=== PATIENT | female | born 1945 | race Caucasian/White ===

== ENCOUNTER → 2016-06-09 | Day surgery (SDC) | payer OTHER ==
[~2016-06-09] VITALS: Ht 154.9 cm; Wt 80.3 kg
[2016-06-09 09:30] VITALS: BP 149/89
[2016-06-09 15:12] VITALS: BP 116/64
== END | disposition home or self-care (01) ==
LOC: GI 08:58 → OR 10:30 → GI 11:30
PROVIDERS: Internal Medicine Gastroenterology
PROC: 0DB68ZX Excision of Stomach, Via Natural or Artificial Opening Endoscopic, Diagnostic (ICD-10-PCS; principal; 2016-06-09 11:30)
DX: D50.9 Iron deficiency anemia, unspecified (principal); K25.7 Chronic gastric ulcer without hemorrhage or perforation; K29.50 Unspecified chronic gastritis without bleeding; K44.9 Diaphragmatic hernia without obstruction or gangrene; M19.90 Unspecified osteoarthritis, unspecified site; Z87.11 Personal history of peptic ulcer disease
CPT/HCPCS: 43235; J1200; J1610; J2250; J2310; J3010; J3490